=== PATIENT | male | born 1960 | race Caucasian/White ===

== ENCOUNTER 2020-01-07 06:05 | Emergency (ER) | payer OTHER, SELFPAY ==
[2020-01-07 06:07] VITALS: BP 151/76; PULSE 46; RESP 22; TEMP 37; O2SAT 100
--- NOTE | 2020-01-07 06:08 | DI.RAD.S_ITS ---
PROCEDURE: XR CHEST 1V INDICATIONS: SOB TECHNIQUE: One view of the chest was acquired. COMPARISON: None. FINDINGS: Surgical changes and devices: None. Lungs and pleura: Lungs are clear. No pleural effusions or pneumothorax. Mediastinum: Mediastinal contours appear normal. Heart size is normal. Bones and chest wall: No suspicious bony lesions. Overlying soft tissues appear unremarkable. IMPRESSION: No acute pulmonary process. Dictated by: Анна Cuello M.D. on 01/07/2020 at 10:17 Approved by: Анна Cuello M.D. on 01/07/2020 at 10:17
[2020-01-07 06:17] VITALS: PULSE 46; RESP 22; O2SAT 100
[2020-01-07 06:30] VITALS: BP 154/83; PULSE 47; RESP 41; O2SAT 99
[2020-01-07 06:35] LABS: Add Manual Diff / Slide Review NO; Basophils Absolute Auto 0 /uL (0-100); Basophils Percent Auto 0.5 % (0-2); Eosinophils Absolute Auto 200 /uL (0-450); Eosinophils Percent Auto 3.7 % (2-4); Hematocrit 43.5 % (41-53); Hemoglobin 14.5 g/dL (13.5-17.5); Lymphocytes Absolute Auto 2100 /uL (1100-4500); Lymphocytes Percent Auto 37.8 % (25-40); Mean Corpuscular HGB Conc 33.4 % (30-36); Mean Corpuscular Hemoglobin 28.9 PG (26-34); Mean Corpuscular Volume 86.5 fL (80-100); Monocytes Absolute Auto 300 /uL (0-900); Monocytes Percent Auto 6.1 % (3-14); Neutrophils Absolute Auto 2900 /uL (1500-7000); Neutrophils Percent Auto 51.9 % (50-75); Platelet Count 192 X10^3/uL (150-400); Red Blood Cell Count 5.03 X10^6/uL (4.5-5.9); Red Cell Distribution Width 14.8 % (11.6-14.8); White Blood Cell Count 5.6 X10^3/uL (4.5-11.0)
--- NOTE | 2020-01-07 06:36 | ED.GENADULT ---
HPI - General Adult General Chief complaint: Dizziness Stated complaint: DIZZINESS/ BP HIGH, HARD TO BREATH Time Seen by Provider: 01/07/20 06:07 Source: patient and family Mode of arrival: Wheelchair Limitations: no limitations History of Present Illness HPI narrative: 51-year-old male here for evaluation of dizziness, diaphoresis, high blood pressure, nausea, shortness of breath. Patient states that all of his symptoms started this morning with the dizziness. He states that he woke up and when he turned to his right side the symptoms started abruptly. He states that all of his other presenting symptoms occurred after this. At the time my evaluation he does think that his vertigo seem to have improved however he states that if he turns his head to the left or right he would bring the symptoms on. No fevers. Does have a history of high blood pressure. Related Data Previous Rx's Medication Instructions Recorded meclizine 25 mg PO TID PRN #14 tab 01/07/20 Allergies Allergy/AdvReac Type Severity Reaction Status Date / Time No Known Drug Allergies Allergy Verified 01/07/20 06:44 Review of Systems Constitutional Constitutional: Denies fever(s), Denies headache(s) and Denies weakness ENT Ears, Nose, Mouth, and Throat: Reports vertigo, Reports dizziness and Denies headache(s) Cardiovascular Cardiovascular: Denies chest pain and Reports dyspnea Respiratory Respiratory: Reports dyspnea Gastrointestinal Gastrointestinal: Denies abdominal pain, Reports nausea and Denies vomiting Genitourinary Genitourinary: Denies dysuria Genitourinary: Denies dysuria Musculoskeletal Musculoskeletal: Denies arthralgias, Denies myalgias and Denies tingling Integumentary/Breasts Skin/Breast: Denies lesions and Denies rash Neurologic Neurologic: Denies abnormal speech, Denies behavioral changes, Reports vertigo, Reports dizziness, Denies headache(s), Denies tingling and Denies weakness Psychiatric Psychiatric: Denies behavioral changes Hematologic/Lymphatic Hematologic/Lymphatic: Denies easy bleeding and Denies easy bruising Allergic/Immunologic Allergic/Immunologic: Denies urticaria Patient History Medical History Hypertension (Acute) Social History Smoking Status: Never smoker Smoking Status: Never smoker Substance Use Type: does not use Exam Initial Vital Signs Initial Vital Signs: Vital Signs Temperature 98.6 F 01/07/20 06:07 Pulse Rate 46 L 01/07/20 06:07 Respiratory Rate 22 01/07/20 06:07 Blood Pressure 151/76 H 01/07/20 06:07 Pulse Oximetry 100 01/07/20 06:07 Const General: cooperative and comfortable Limitations: mental status not altered HENMT Head: normal to inspection and normocephalic Nose: external nose normal Eyes General: appearance normal, both eyes and all related structures Pupils: PERRL Resp Effort & Inspection: normal respiratory effort Auscultation: clear to auscultation bilaterally Cardio Rate: bradycardic Rhythm: regular rhythm Pulses: radial pulses present GI Inspection: non-distended Palpation: soft Skin Lesions: no lesions Rashes: no rashes Neuro General: patient alert, patient awake, patient oriented x3, moves all extremities and no focal motor deficits Cranial Nerves: CN's II-XI intact bilaterally Cognition: normal cognition Speech: speech normal Motor: muscle tone normal throughout Sensory Exam: no sensory deficits noted Extrem General: normal to inspection and capillary refill normal Psych Appearance: grossly normal and well kempt Scores GCS Mihir coma scale eye opening: Spontaneous Mihir coma scale verbal response: Orientated Mihir coma scale motor response: Obey commands Mihir coma scale total score: 15 Course Orders Ordered: ED Orders 01/07/20 06:08 XR chest 1V Stat 01/07/20 06:09 EKG-12 Lead Stat 01/07/20 06:23 Complete Blood Count AUTO DIFF Stat Partial Thromboplastin Time Stat Prothrombin Time INR Stat 01/07/20 06:45 Comprehensive Metabolic Panel Stat Lipase Stat NT-proBNP (BNP-Adult 18+) Stat Troponin & CK Cardiac Panel Stat Discontinued Medications Meclizine HCl (Antivert) 25 mg PO NOW ONE Stop: 01/07/20 06:38 Last Admin: 01/07/20 06:40 Dose: 25 mg Documented by: NEENA Vital Signs Vital signs: Vital Signs - 8 hr 01/07/20 06:07 01/07/20 06:17 01/07/20 06:30 Temperature 98.6 F Pulse Rate 46 L 46 L 47 L Respiratory Rate 22 22 41 H Blood Pressure 151/76 H 154/83 H Pulse Oximetry 100 100 99 Medical Decision Making Lab Data Lab results reviewed: Yes I reviewed the patient's lab results. Result diagrams: 01/07/20 06:23 01/07/20 06:45 Labs: Lab Results 01/07/20 01/07/20 01/07/20 Range/Units 06:23 06:23 06:45 WBC 5.6 (4.5-11.0) X10^3/uL RBC 5.03 (4.5-5.9) X10^6/uL Hgb 14.5 (13.5-17.5) g/dL Hct 43.5 (41-53) % MCV 86.5 (80-100) fL MCH 28.9 (26-34) PG MCHC 33.4 (30-36) % RDW 14.8 (11.6-14.8) % Plt Count 192 (150-400) X10^3/uL Neut % (Auto) 51.9 (50-75) % Lymph % (Auto) 37.8 (25-40) % [place] % (Auto) 6.1 (3-14) % Eos % (Auto) 3.7 (2-4) % Baso % (Auto) 0.5 (0-2) % Neut # (Auto) 2900 (1595-6026) /uL Lymph # (Auto) 2100 (3849-2530) /uL [place] # (Auto) 300 (0-900) /uL Eos # (Auto) 200 (0-450) /uL Baso # (Auto) 0 (0-100) /uL PT 11.4 (10.1-12.7) SECONDS INR 1.0 (0.9-1.3) APTT 32 (26.4-36.2) SECONDS Sodium 138 (137-145) mmol/L Potassium 3.9 (3.4-5.1) mmol/L Chloride 104 (98-107) mmol/L Carbon Dioxide 29 (22-32) mmol/L BUN 17 (9-20) mg/dL Creatinine 0.80 (0.66-1.25) mg/dL Estimated GFR > 60.0 (>60) mL/min BUN/Creatinine Ratio 21.3 (6-22) Glucose 109 H (70-100) mg/dL Calcium 8.9 (8.4-10.2) mg/dL Total Bilirubin 0.9 (0.2-1.3) mg/dL AST 23 (17-59) IU/L ALT 18 (<50) IU/L Alkaline Phosphatase 50 (38-126) U/L Total Creatine Kinase 83 (55-170) U/L CK-MB (CK-2) TNP CK-MB (CK-2) Rel Index TNP Troponin I < 0.012 (0.01-0.034) ng/mL NT-Pro-B Natriuret Pep 54 (<125) pg/mL Total Protein 7.0 (6.3-8.2) g/dL Albumin 4.1 (3.5-5.0) g/dL Globulin 2.9 (1.7-4.1) g/dL Albumin/Globulin Ratio 1.4 (1.0-2.8) Lipase 79 (23-300) U/L Imaging Data Chest x-ray: Attestation: I personally reviewed and interpreted this imaging study as follows: My Impression: No pneumonia, no pneumothorax ECG Data Attestation: I personally reviewed and interpreted this ECG as follows: Prior ECG tracings: not available for review Interpretation: Sinus bradycardia Ventricular rate of 45 Normal axis Normal QRS Normal QTC No ST T wave changes MDM Narrative Medical decision making narrative: Patient did have a positive [place]-Hallpike maneuver. Action reports improvement of symptoms at the time my evaluation compared with the onset this morning. The fact that it occurred when he woke up. Fact that it is positional. The fact that he has a nonfocal neurologic exam I feel that this is most likely a peripheral vertigo. I feel we can hold on any radiologic studies. He was given meclizine and reports continued improvement. Unsure this is the meclizine or the passage of time that has improved symptoms. Will send home with a prescription for meclizine. Having contact his primary provider for follow-up. He was given return precautions. He expressed understanding and agreement. Discharge Plan Departure Patient Disposition: Home Clinical Impression: Vertigo Instructions: DI for Vertigo Activity Restrictions/Additional Instructions: There is a maneuver called the Eply maneuver that could potentially improve/resolve your symptoms. There are multiple videos on [employer] that describe this maneuver. Recommend that you observe 1 of these videos and follow the directions. A prescription for the meclizine was electronically transmitted to [facility] in [place]. Contact your primary provider for follow-up. Return to the emergency department for any new or worsening symptoms Prescriptions: New meclizine 25 mg tablet 25 mg PO TID PRN (Reason: dizziness) Qty: 14 RF: 0
[2020-01-07 06:37] LABS: Prothrombin Time 11.4 SECONDS (10.1-12.7)
[2020-01-07 06:40] LABS: PTT Partial Thromboplastin Tim 32 SECONDS (26.4-36.2)
[2020-01-07] MEDS: MECLIZINE HCL 12.5 MG TABLET 25 MG PO (06:40)
[2020-01-07 07:00] VITALS: BP 146/82; PULSE 43; RESP 17; O2SAT 94
[2020-01-07 07:06] LABS: Alanine Aminotransferase 18 IU/L (<50); Albumin 4.1 g/dL (3.5-5.0); Albumin Globulin Ratio 1.4 (1.0-2.8); Alkaline Phosphatase 50 U/L (38-126); Aspartate Aminotransferase 23 IU/L (17-59); BUN Creatinine Ratio 21.3 (6-22); Bilirubin Total 0.9 mg/dL (0.2-1.3); Blood Urea Nitrogen 17 mg/dL (9-20); Calcium 8.9 mg/dL (8.4-10.2); Carbon Dioxide 29 mmol/L (22-32); Chloride 104 mmol/L (98-107); Creatine Kinase 83 U/L (55-170); Estimated Glomerular Filt Rate > 60.0 mL/min (>60); Globulin 2.9 g/dL (1.7-4.1); Glucose 109 mg/dL (70-100); HEMOLYSIS < 15 (0-50); Lipase 79 U/L (23-300); Potassium 3.9 mmol/L (3.4-5.1); Sodium 138 mmol/L (137-145)
[2020-01-07 07:18] LABS: NT-proBNP (BNP-Adult 18+) 54 pg/mL (<125); Troponin I < 0.012 ng/mL (0.01-0.034)
[2020-01-07 07:30] VITALS: PULSE 46; RESP 15; O2SAT 97
[2020-01-07 07:38] VITALS: BP 146/84; PULSE 46; RESP 17; O2SAT 96
== END 2020-01-07 07:58 | disposition home or self-care (01) ==
PROVIDERS: Emergency Provider Emergency Medicine
DX: R42 Dizziness and giddiness (principal)
CPT/HCPCS: 36415; 71045; 80053; 82550; 83690; 83880; 84484; 85025; 85610; 85730; 93005; 99284

== ENCOUNTER 2020-11-26 12:00 | Emergency (ER) | payer OTHER, SELFPAY ==
[2020-11-26] VITALS (8 sets, daily range): BP systolic 144–181; BP diastolic 76–86; PULSE 48–57; RESP 16; TEMP 36.6; O2SAT 94–99; BMI 31.5
[2020-11-26 12:29] LABS: Add Manual Diff / Slide Review NO; Basophils Absolute Auto 100 /uL (0-100); Eosinophils Absolute Auto 200 /uL (0-450); Eosinophils Percent Auto 2.8 % (2-4); Hematocrit 41.8 % (41-53); Hemoglobin 13.5 g/dL (13.5-17.5); Lymphocytes Absolute Auto 2100 /uL (1100-4500); Lymphocytes Percent Auto 34.3 % (25-40); Mean Corpuscular HGB Conc 32.4 % (30-36); Mean Corpuscular Volume 86.7 fL (80-100); Monocytes Absolute Auto 500 /uL (0-900); Monocytes Percent Auto 8.8 % (3-14); Neutrophils Absolute Auto 3300 /uL (1500-7000); Neutrophils Percent Auto 53.1 % (50-75); Platelet Count 195 X10^3/uL (150-400); Red Blood Cell Count 4.82 X10^6/uL (4.5-5.9); Red Cell Distribution Width 14.5 % (11.6-14.8); White Blood Cell Count 6.2 X10^3/uL (4.5-11.0)
--- NOTE | 2020-11-26 12:30 | DI.US.S_ITS ---
PROCEDURE: US AORTA LIMITED INDICATIONS: ABDOMINAL PAIN AND HYPERTENSION TECHNIQUE: Real time scanning was performed of the aorta and iliac arteries, with image documentation. COMPARISON: None. FINDINGS: Aorta: Proximal aortic diameter measures 2.6 x 2.3 cm. Mid-aorta measures 2.1 x 1.6 cm. Distal aortic diameter is 2 x 1.7 cm. Iliac arteries: Right common iliac artery measures 1.2 cm. Left common iliac artery measures 1.2 cm. Additional scanning is performed area pain on the right, which corresponds to moderate right-sided hydronephrosis. IMPRESSION: Negative for aneurysm. Moderate right-sided hydronephrosis incidentally noted. Dictated by: Scot Aguila M.D. on 11/26/2020 at 12:18 Approved by: Scot Aguila M.D. on 11/26/2020 at 12:19
--- NOTE | 2020-11-26 12:34 | ED.ABDPAIN ---
HPI - Abdominal Pain <Elbert Pedro PA-C - Last Filed: 11/27/20 15:02> General Chief Complaint: Abdominal Pain Stated Complaint: severe constant right sided pain x20 min. Time Seen by Provider: 11/26/20 12:09 History of Present Illness HPI narrative: Alonso presents today with chief complaint of right lower quadrant abdominal pain that started suddenly and was severe about 20 minutes prior to arrival. He describes it as feeling like something ripped inside of his abdomen and then it felt like swelling. He looked down at his stomach to see if it was getting swollen but noticed that it was not. He reports a sensation like something is spreading inside of his abdomen radiating down into his groin. His pain was initially severe but now has improved. He reports significant past medical history of hypertension. He denies any smoking history. He denies any previous abdominal surgeries. He has no other acute concerns or complaints at this time. Related Data Previous Rx's Medication Instructions Recorded meclizine 25 mg tablet 25 mg PO TID PRN #14 tab 01/07/20 tamsulosin 0.4 mg capsule 0.4 mg PO DAILY PRN #10 cap 11/26/20 Allergies Allergy/AdvReac Type Severity Reaction Status Date / Time No Known Drug Allergies Allergy Verified 01/07/20 06:44 Review of Systems <Elbert Pedro PA-C - Last Filed: 11/27/20 15:02> Review of Systems Narrative: As per HPI Patient History <Elbert Pedro PA-C - Last Filed: 11/27/20 15:02> Medical History (Updated 11/26/20 @ 14:27 by Elbert Pedro PA-C) Hypertension Social History Smoking Status: Never smoker Smoking Status: Never smoker Substance Use Type: does not use Exam <Elbert Pedro PA-C - Last Filed: 11/27/20 15:02> Narrative Exam Narrative: Exam Narrative: Const General: cooperative, healthy appearing, comfortable, no acute distress, well developed and well groomed Nutritional Appearance: average body habitus Orientation: alert and oriented x3 HENMT Head: normal to inspection and atraumatic Ears: hearing grossly normal bilaterally Nose: external nose normal and nares normal Face and sinus: normal facial exam Neck Neck: normal visual inspection and supple Resp Effort & Inspection: normal respiratory effort, able to speak in complete sentences, no audible wheezes, not labored, no nasal flaring and no respiratory distress Cardiac Regular rate and rhythm, no discernible murmurs, rubs or gallops GI Nondistended, nontender to palpation, negative Garcia sign, no tenderness at McBurney's point, no pulsatile masses noted. No CVA tenderness, testicular and penile exam normal. No evidence of herniation. No epididymal tenderness. Cremasteric reflex intact bilaterally. Neuro General: alert, oriented x3, gait normal, tone normal and moves all extremities Cognition: normal cognition Speech: speech normal Gait: normal gait Psych Appearance: grossly normal and well kempt Mental Status: mental status grossly normal Speech and Movement: speech and movement normal Mood: congruent mood Affect: normal affect Initial Vital Signs Initial Vital Signs: Vital Signs Temperature 98 F 11/26/20 12:20 Pulse Rate 54 L 11/26/20 12:20 Respiratory Rate 16 11/26/20 12:20 Blood Pressure 181/86 H 11/26/20 12:20 Pulse Oximetry 97 11/26/20 12:20 <DO Reny Morris Last Filed: 11/27/20 15:27> Initial Vital Signs Initial Vital Signs: Vital Signs Temperature 98 F 11/26/20 12:20 Pulse Rate 54 L 11/26/20 12:20 Respiratory Rate 16 11/26/20 12:20 Blood Pressure 181/86 H 11/26/20 12:20 Pulse Oximetry 97 11/26/20 12:20 Course <Elbert Pedro PA-C - Last Filed: 11/27/20 15:02> Orders Ordered: Discontinued Medications Ketorolac Tromethamine (Ketorolac 30 Mg/Ml Vial) 15 mg IV NOW ONE Stop: 11/26/20 13:47 Last Admin: 11/26/20 14:09 Dose: Not Given Documented by: ALIA Vital Signs Vital signs: Vital Signs - 8 hr 11/26/20 12:20 Temperature 98 F Pulse Rate 54 L Respiratory Rate 16 Blood Pressure 181/86 H Pulse Oximetry 97 <DO Reny Morris Last Filed: 11/27/20 15:27> Orders Ordered: Discontinued Medications Ketorolac Tromethamine (Ketorolac 30 Mg/Ml Vial) 15 mg IV NOW ONE Stop: 11/26/20 13:47 Last Admin: 11/26/20 14:09 Dose: Not Given Documented by: ALIA Vital Signs Vital signs: Vital Signs - 8 hr 11/26/20 12:20 Temperature 98 F Pulse Rate 54 L Respiratory Rate 16 Blood Pressure 181/86 H Pulse Oximetry 97 MDM - Abdominal Pain <Elbert Pedro PA-C - Last Filed: 11/27/20 15:02> Lab Data Result diagrams: 11/26/20 12:15 11/26/20 12:15 Labs: Lab Results 11/26/20 11/26/20 Range/Units 12:15 12:15 WBC 6.2 (4.5-11.0) X10^3/uL RBC 4.82 (4.5-5.9) X10^6/uL Hgb 13.5 (13.5-17.5) g/dL Hct 41.8 (41-53) % MCV 86.7 (80-100) fL MCH 28.0 (26-34) PG MCHC 32.4 (30-36) % RDW 14.5 (11.6-14.8) % Plt Count 195 (150-400) X10^3/uL Neut % (Auto) 53.1 (50-75) % Lymph % (Auto) 34.3 (25-40) % [place] % (Auto) 8.8 (3-14) % Eos % (Auto) 2.8 (2-4) % Baso % (Auto) 1.0 (0-2) % Neut # (Auto) 3300 (0590-8452) /uL Lymph # (Auto) 2100 (8528-4333) /uL [place] # (Auto) 500 (0-900) /uL Eos # (Auto) 200 (0-450) /uL Baso # (Auto) 100 (0-100) /uL Sodium 140 (137-145) mmol/L Potassium 4.0 (3.4-5.1) mmol/L Chloride 108 H (98-107) mmol/L Carbon Dioxide 23 (22-32) mmol/L BUN 19 (9-20) mg/dL Creatinine 0.92 (0.66-1.25) mg/dL Estimated GFR > 60.0 (>60) mL/min BUN/Creatinine Ratio 20.7 (6-22) Glucose 145 H (70-100) mg/dL Calcium 9.6 (8.4-10.2) mg/dL Total Bilirubin 0.6 (0.2-1.3) mg/dL AST 34 (17-59) IU/L ALT 25 (<50) IU/L Alkaline Phosphatase 47 (38-126) U/L Total Protein 7.3 (6.3-8.2) g/dL Albumin 4.5 (3.5-5.0) g/dL Globulin 2.8 (1.7-4.1) g/dL Albumin/Globulin Ratio 1.6 (1.0-2.8) Lipase 87 (23-300) U/L Point of care testing: Urine Dip Bedside Urine Glucose Negative Bedside Urine Bilirubin - Negative Bedside Urine Ketone - Negative Urine Specific [place] 1.010 Bedside Urine Occult Blood +++ Bedside Urine pH 7.0 Bedside Urine Protein - Negative Bedside Urine Urobilinogen - Negative Bedside Urine Nitrite - Negative Bedside Urine Leukocytes - Negative Esterase MDM Narrative Medical decision making narrative: Evaluation today has been generally reassuring. Differential diagnosis considered includes appendicitis, AAA, testicular torsion, inguinal hernia, bowel obstruction. Patient has evidence of right nephrolithiasis he has without any significant signs of obstruction. He does not have any evidence of infection at this time. Aortic ultrasound is reassuring as is the CT scan. Recommend treatment for nephrolithiasis at this time with strict return precautions. These were discussed with the patient. Patient verbalizes understanding and agrees to plan and has no further concerns at this time. Thank you A [id number] system was used with the dictation of this note. Please disregard any spelling or grammatical errors. <Jh Cordova, DO - Last Filed: 11/27/20 15:27> Lab Data Labs: Lab Results 11/26/20 11/26/20 Range/Units 12:15 12:15 WBC 6.2 (4.5-11.0) X10^3/uL RBC 4.82 (4.5-5.9) X10^6/uL Hgb 13.5 (13.5-17.5) g/dL Hct 41.8 (41-53) % MCV 86.7 (80-100) fL MCH 28.0 (26-34) PG MCHC 32.4 (30-36) % RDW 14.5 (11.6-14.8) % Plt Count 195 (150-400) X10^3/uL Neut % (Auto) 53.1 (50-75) % Lymph % (Auto) 34.3 (25-40) % [place] % (Auto) 8.8 (3-14) % Eos % (Auto) 2.8 (2-4) % Baso % (Auto) 1.0 (0-2) % Neut # (Auto) 3300 (3376-2564) /uL Lymph # (Auto) 2100 (6267-0835) /uL [place] # (Auto) 500 (0-900) /uL Eos # (Auto) 200 (0-450) /uL Baso # (Auto) 100 (0-100) /uL Sodium 140 (137-145) mmol/L Potassium 4.0 (3.4-5.1) mmol/L Chloride 108 H (98-107) mmol/L Carbon Dioxide 23 (22-32) mmol/L BUN 19 (9-20) mg/dL Creatinine 0.92 (0.66-1.25) mg/dL Estimated GFR > 60.0 (>60) mL/min BUN/Creatinine Ratio 20.7 (6-22) Glucose 145 H (70-100) mg/dL Calcium 9.6 (8.4-10.2) mg/dL Total Bilirubin 0.6 (0.2-1.3) mg/dL AST 34 (17-59) IU/L ALT 25 (<50) IU/L Alkaline Phosphatase 47 (38-126) U/L Total Protein 7.3 (6.3-8.2) g/dL Albumin 4.5 (3.5-5.0) g/dL Globulin 2.8 (1.7-4.1) g/dL Albumin/Globulin Ratio 1.6 (1.0-2.8) Lipase 87 (23-300) U/L Point of care testing: Urine Dip Bedside Urine Glucose Negative Bedside Urine Bilirubin - Negative Bedside Urine Ketone - Negative Urine Specific [place] 1.010 Bedside Urine Occult Blood +++ Bedside Urine pH 7.0 Bedside Urine Protein - Negative Bedside Urine Urobilinogen - Negative Bedside Urine Nitrite - Negative Bedside Urine Leukocytes - Negative Esterase Discharge Plan Departure Patient Disposition: Home Clinical Impression: Kidney stone on right side Instructions: DI for Kidney Stones Activity Restrictions/Additional Instructions: It was very nice to meet you this afternoon. Please use the medication to help you pass the kidney stone. I expect your symptoms to improve in next 1-2 days. Please return if you experience is significant urine decrease, worsening pain, fever or have any additional concerns or complaints. Incidentally on the CT scan a small nodule was noted in your lung as well on as on the liver. The radiologist recommended a re-scan in 6-12 months. Please follow-up with your primary care provider for this. Thank you Elbert Pedro PAC Prescriptions: New tamsulosin 0.4 mg capsule 0.4 mg PO DAILY PRN (Reason: until stone passes) Qty: 10 RF: 0 No Action meclizine 25 mg tablet 25 mg PO TID PRN (Reason: dizziness) Qty: 14 RF: 0 <Jh Cordova, DO - Last Filed: 11/27/20 15:27> [facility] Dr Cordova Co-Sign Statement: I was available for consultation during this patient's emergency department visit. This chart is signed by myself for administrative purposes only. I did not have direct contact with this patient during this visit. They were seen independently by the APC.
[2020-11-26 12:43] LABS: Alanine Aminotransferase 25 IU/L (<50); Albumin 4.5 g/dL (3.5-5.0); Albumin Globulin Ratio 1.6 (1.0-2.8); Alkaline Phosphatase 47 U/L (38-126); Aspartate Aminotransferase 34 IU/L (17-59); BUN Creatinine Ratio 20.7 (6-22); Bilirubin Total 0.6 mg/dL (0.2-1.3); Blood Urea Nitrogen 19 mg/dL (9-20); Calcium 9.6 mg/dL (8.4-10.2); Carbon Dioxide 23 mmol/L (22-32); Chloride 108 mmol/L (98-107); Estimated Glomerular Filt Rate > 60.0 mL/min (>60); Globulin 2.8 g/dL (1.7-4.1); Glucose 145 mg/dL (70-100); HEMOLYSIS < 15 (0-50); Lipase 87 U/L (23-300); Sodium 140 mmol/L (137-145); Total Protein 7.3 g/dL (6.3-8.2)
--- NOTE | 2020-11-26 13:16 | DI.CT.S_ITS ---
PROCEDURE: CT ABDOMEN PELVIS W CON INDICATIONS: abd pain TECHNIQUE: After the administration of intravenous contrast, axial sections acquired from the lung bases to the pubic symphysis. Coronal and sagittal reformats were performed. For radiation dose reduction, the following was used: automated exposure control, adjustment of mA and/or kV according to patient size. COMPARISON: None. FINDINGS: Image quality: Excellent. Lung bases: 6-7 millimeter nodule noted in the right middle lobe (series 3, image 3). Heart: No significant findings. ABDOMEN: Liver: 1.5 centimeter hypoattenuating lesion with internal calcification noted in the left lobe of the liver which may represent hemangioma. Focal fatty infiltration noted in the liver adjacent to the falciform ligament. Gallbladder: Contracted, but within normal limits. Biliary ducts: Unremarkable. Pancreas: Unremarkable. Spleen: Unremarkable. Adrenal Glands: Unremarkable. Kidneys and Ureters: 6 millimeter stone noted in the proximal right ureter causing mild right-sided hydronephrosis. No left-sided renal stones or hydronephrosis. Stomach and Bowel: Stomach, small bowel loops, and colon are unremarkable. The appendix is not definitely visualized. No free fluid or inflammatory changes are noted adjacent to the cecum. Peritoneum: No abnormal intraperitoneal fluid. No free air. Ventral Wall: Small fat containing periumbilical hernia. Abdominal Nodes: No retroperitoneal or mesenteric adenopathy by size criteria. Vessels: Aorta and inferior vena cava are normal in size. PELVIS: Pelvic Organs: Unremarkable. Bladder: Unremarkable. Pelvic Nodes: No enlarged lymph nodes. Miscellaneous: Small fat containing left inguinal hernia. Intramuscular lipoma noted in the right gluteal musculature. Bones: Spine degenerative disc disease and facet arthropathy. IMPRESSION: 1. 6 millimeter stone in the proximal right ureter causing mild right-sided hydronephrosis. 2. Appendix not visualized. No secondary signs of appendicitis noted adjacent to the cecum. 3. 1.5 centimeter partially calcified and hypoattenuating lesion the left lobe of the liver which may represent hemangioma, however the lesion is not definitively characterized by the current study. Recommend MRI of the abdomen with and without contrast (hepatic protocol) for further characterization. 4. 6-7 millimeter nodule in the right middle lobe. Recommend CT scan of the chest in 6-12 months based on criteria outlined below. Fleischner Society criteria for SOLID lung nodule followup. Nodule size (mm)Low-risk patientHigh-risk patient<6 (single or multiple)No routine followup.Optional CT at 12 months. 6-8 (single or multiple)CT at 6-12 months, then optional CT at 18-24 mo.CT at 6-12 months, then CT at 18-24 months. >8 (single)CT at 3 months, PET-CT, or biopsy. Same as for low-risk pts. >8 (multiple)CT at 3-6 months, then optional CT at 18-24 mo.CT at 3-6 months, then CT at 18-24 months. Recommendations do not apply to lung cancer screening, patients with immunosuppression, or patients with known primary cancer. Dictated by: Mady Vinson MD, PhD on 11/26/2020 at 13:48 Approved by: Mady Vinson MD, PhD on 11/26/2020 at 13:58
--- NOTE | 2020-11-26 14:25 | PC.NURSE ---
Pt declined pain medication states he pain has resolved
== END 2020-11-26 14:49 | disposition home or self-care (01) ==
PROVIDERS: Emergency Provider Physician Assistant
DX: N20.0 Calculus of kidney (principal); R10.31 Right lower quadrant pain
CPT/HCPCS: 36415; 74177; 80053; 81003; 83690; 85025; 93005; 93010; 93979; 99284

== ENCOUNTER → 2020-12-20 10:06 | Outpatient (CLI) | payer OTHER, SELFPAY ==
--- NOTE | 2020-12-20 10:08 | DI.MRI.S_ITS ---
PROCEDURE: MR SHOULDER LT WO CON INDICATIONS: Strain of muscle(s) and tendon(s) of the rotator c TECHNIQUE: Noncontrast oblique coronal T2 fast spin echo with fat saturation, oblique sagittal T1 spin echo and T2 fast spin echo with fat saturation, axial T1 spin echo and T2 fast spin echo with fat saturation through the shoulder. COMPARISON: None. FINDINGS: Image quality: Excellent. Rotator cuff: There is partial-thickness tear of the supraspinatus and subscapularis tendons involving both articular and bursal surface with associated tendinitis. There is infraspinatus and subscapularis tendinitis. Sagittal images demonstrate no muscle atrophy. Bones and bursae: No bone marrow contusions or fractures. Moderate acromioclavicular joint degeneration. The acromion demonstrates conventional anatomy, without an os acromiale. No pathologic subacromial-subdeltoid or subcoracoid bursal fluid is present. Capsule and soft tissues: There is degenerative fraying of the anterior labrum. The long head of the biceps tendon demonstrates normal location and morphology. The rotator interval is irregular. The coracohumeral ligament is appears thickened. IMPRESSION: 1. Partial thickness tear of the distal supraspinatus and subscapularis tendons and associated tendinitis. 2. Infraspinatus tendinitis. 3. Degenerative anterior labral fraying. 4. Moderate acromioclavicular joint degeneration. 5. Irregular rotator interval with thickening of coracohumeral ligament. The findings are associated with adhesive capsulitis. Recommend clinical correlation. Dictated by: Sumi Jackman M.D. on 12/22/2020 at 11:11 Approved by: Sumi Jackman M.D. on 12/22/2020 at 18:24
== END ==
PROVIDERS: Referring Provider Family Medicine; Visit Provider Family Medicine
DX: S46.012A Strain of muscle(s) and tendon(s) of the rotator cuff of left shoulder, initial encounter (principal); M19.012 Primary osteoarthritis, left shoulder; M77.8 Other enthesopathies, not elsewhere classified; X58.XXXA Exposure to other specified factors, initial encounter
CPT/HCPCS: 73221

== ENCOUNTER → 2021-03-04 15:43 | Outpatient (CLI) | payer OTHER, SELFPAY ==
--- NOTE | 2021-03-04 | DI.MRI.S_ITS ---
PROCEDURE: MR ABDOMEN WO/W CON INDICATIONS: other specified diseases of the liver TECHNIQUE: Coronal HASTE, axial 2D FLASH in- and [id number]; axial breath-hold T2 FSE. Dynamic axial VIBE during the administration of contrast; post-contrast coronal VIBE or 2D FLASH with fat saturation from the hepatic dome to the iliac crests. Optional diffusion weighted imaging and ADC may be performed. COMPARISON: [facility], CT, CT ABDOMEN PELVIS W CON, 11/26/2020, 13:21. FINDINGS: Image quality: Excellent. Lung bases: No basal pleural effusions. Heart size is normal. Solid organs: Liver is normal in size and enhancement. 1.3 cm unilocular thin-walled T2 hyperintensities present in the anterior segment IV a. Demonstrates homogeneous T1 hypointensity and no significant internal enhancement. No enhancing liver abnormalities. The gallbladder is decompressed. The biliary system is nondilated. The pancreas enhances normally. No adrenal masses. Spleen is normal size. The kidneys enhance normally without hydronephrosis. Nodes and vessels: No retroperitoneal or mesenteric adenopathy by size criteria. Aorta and inferior vena cava are normal in size. Bowel and peritoneum: Unenhanced bowel loops are normal in caliber. No free fluid. Bones and soft tissues: No ventral hernias. Bone marrow is normal in overall signal. IMPRESSION: 1. 1.3 cm unilocular liver cyst. CT demonstrates layering calcium within the cyst, not apparent by MRI. This may be remote posttraumatic. 2. Otherwise normal MR of the abdomen. Dictated by: Renita Warner M.D. on 03/04/2021 at 23:41 Approved by: Renita Warner M.D. on 03/04/2021 at 23:49
== END ==
PROVIDERS: Referring Provider Family Medicine; Visit Provider Family Medicine
DX: K76.89 Other specified diseases of liver (principal)
CPT/HCPCS: 74183; A9579

== ENCOUNTER → 2021-09-16 11:29 | Outpatient (CLI) | payer OTHER, SELFPAY ==
--- NOTE | 2021-09-16 | DI.MRI.S_ITS ---
PROCEDURE: MR HAND RT WO CON INDICATIONS: Strain of unspecified muscle, fascia and tendon at TECHNIQUE: Noncontrast coronal T1 spin echo and T2 fast spin echo with fat saturation, axial proton density fast spin echo and T2 fast spin echo with fat saturation, sagittal T1 spin echo and STIR through the hand and fingers. COMPARISON: None. FINDINGS: Image quality: Excellent. Bones: The bones are normally aligned, without marrow contusions or fractures. Mild osteoarthritic changes are noted throughout right hand and wrist joints more prominent involving 1st CMC joint and triscaphe joint. Nonspecific subcortical cystic areas are noted involving distal portion of triquetrum, adjacent hamate, 1st proximal phalangeal base likely represent changes related to osteoarthritis. No intra-osseous lesions. Interphalangeal joint(s): The accessory and proper collateral ligaments appear intact. The volar plate demonstrates normal morphology. The extensor central slips appear intact on sagittal images. Metacarpophalangeal joint(s): The accessory and proper collateral ligaments appear intact, as well as the volar plate and adjacent deep transverse metacarpal ligaments. The sagittal bands of the extensor herrera appear normal. Extensor apparatus: The central slips insert normally on the middle phalangeal base. The conjoint and terminal tendons insert normally on the distal phalangeal bases. More proximal portions of the extensor tendons also appear normal. Flexor apparatus: The flexor digitorum superficialis and profundus tendons both appear intact. All annular and cruciform pulleys appear intact, without adjacent soft tissue edema. Soft tissues: Visualized muscles demonstrate normal bulk and internal signal. No intramuscular masses identified. No ganglion cysts. IMPRESSION: 1. Osteoarthritic changes throughout right hand and wrist. No marrow edema. No fracture or dislocation. No suspicious intraosseous lesion. No gross bony erosive changes. 2. Extensor and flexor tendons of right hand are grossly intact. No muscle or soft tissue signal abnormality. Medial and lateral collateral ligaments are intact. Dictated by: Taras Rubin M.D. on 09/16/2021 at 13:57 Approved by: Taras Rubin M.D. on 09/16/2021 at 14:01
== END ==
PROVIDERS: Referring Provider Family Medicine; Visit Provider Family Medicine
DX: S66.911A Strain of unspecified muscle, fascia and tendon at wrist and hand level, right hand, initial encounter (principal)
CPT/HCPCS: 73218

== ENCOUNTER 2023-11-16 11:17 | Day surgery (SDC) | payer OTHER, SELFPAY ==
[2023-11-09 15:18] VITALS: BMI 33.7
--- NOTE | 2023-11-15 08:42 | PM.HP.1 ---
History of Present Illness History of Present Illness Date Patient Seen: 11/16/23 Time Patient Seen: 12:05 Chief complaint: Open umbilical hernia Narrative: 62-year-old man here for elective open umbilical hernia repair. No interval change in health. [facility] Medical History DDD (degenerative disc disease) Cervical strain Eczema Anxiety Depression Lipoma GERD (gastroesophageal reflux disease) Hypertension Surgical History History of surgery History of carpal tunnel surgery of right wrist History of tonsillectomy Social History details: Pt. lives with his mom and brother household members: family lives independently: Yes occupational status: previously employed Smoking Status: Never smoker alcohol intake: current substance use type: marijuana Meds Home Medications and Allergies Home Medications Medication Instructions Recorded Confirmed Type losartan 100 mg tablet 100 mg PO DAILY 01/21/22 11/16/23 History omeprazole magnesium 20 mg 20 mg PO DAILY 01/21/22 09/16/23 History tablet,delayed release (Prilosec OTC) amlodipine 10 mg tablet 10 mg PO DAILY 09/16/23 11/16/23 History losartan 100 1 tab PO DAILY 11/16/23 11/16/23 History mg-hydrochlorothiazide 12.5 mg tablet Allergies Allergy/AdvReac Type Severity Reaction Status Date / Time No Known Drug Allergies Allergy Verified 09/16/23 10:14 Exam Narrative Exam Narrative: General adult man alert oriented no acute distress Chest nonlabored respiration Abdomen soft nontender nondistended with a umbilical hernia Assessment & Plan Assessment & Plan narrative: 62-year-old man here for elective umbilical hernia repair. Overview of the operation was again discussed at the bedside including the risks benefits and alternatives. Following discussion he elects to proceed and provides his written and verbal consent. Time-Based Coding :: [TOTAL MINUTES] spent with patient and on the chart (including review of chart, obtaining history, exam, reviewing outside data, placing orders, documenting exam and treatment plan, and counseling patient) on [DATE].
[2023-11-16 11:34] VITALS: BP 158/86; PULSE 50; RESP 16; TEMP 36.7; O2SAT 97; BMI 33.7
[2023-11-16] MEDS: LACTATED RINGERS 1,000 ML 42 ML IV (11:51)
[2023-11-16] MEDS: CEFAZOLIN 2 GM/100 ML PREMIX 100 ML IV (12:10)
--- NOTE | 2023-11-16 12:19 | SUR.OPER ---
Supine on padded OR bed, head on pillow, arms secured on padded arm boards at <90 degrees abduction, legs uncrossed, safety belt at thigh, tape over blanket over lower legs.
[2023-11-16] MEDS: BUPIVACAINE 0.25% (PF) VIAL 30 ML INJ (12:25)
[2023-11-16 13:18] VITALS: BP 141/95; PULSE 52; RESP 14; TEMP 36.4; O2SAT 95
[2023-11-16 13:23] VITALS: BP 146/90; PULSE 54; RESP 19; TEMP 36.6; O2SAT 94
[2023-11-16] MEDS: OXYCODONE IR 5 MG TABLET PO (13:27)
[2023-11-16] MEDS: ONDANSETRON 4 MG/2 ML INJ IV (13:27)
[2023-11-16] MEDS: hydrOXYzine 50 MG/ML INJ 25 MG IM (13:27)
[2023-11-16 13:29] VITALS: BP 138/86; PULSE 51; RESP 12; TEMP 36.6; O2SAT 94
[2023-11-16 13:33] VITALS: BP 153/85; PULSE 59; RESP 16; TEMP 36.5; O2SAT 94
--- NOTE | 2023-11-16 13:34 | P.OP_ITS ---
Operative Date/Time/Diagnoses Date of procedure: 11/16/23 Time of procedure: 13:34 Pre-op diagnosis: Umbilical hernia Post-op diagnosis: same Procedure & Clinicians Procedure: open umbilical hernia repair Same procedure as scheduled: Yes Indications: symptomatic reducible umbilical Surgeon: Antonio Bedoya Rehabilitation Manager: Alex Perez Anesthesia Type: General Operative Notes Findings: containing umbilical hernia 3 cm defect Estimated Blood Loss (mL): 20 Procedure in detail: Patient was brought to the operating room placed supine on the table. Bilateral lower extremity compression devices were applied. General anesthesia was induced and they were intubated with an endotracheal tube. They received 2 g of Ancef prior to skin incision. They were prepped and draped in sterile fashion. A time-out was performed. A curvilinear incision was made inferior to the umbilicus. The subcutaneous tissues were divided. The umbilical hernia was identified and the hernia sac was dissected off the umbilical skin and circumferentially off of the fascia defect. The hernia sac was sharply opened and contained viable omentum. The omentum was reduced back into the abdomen. Using blunt dissection I carefully carefully freed the hernia sac from beneath the fascia defect in order to accomodate the mesh. The fascia defect was 4cm in maximal diameter. A Bard Ventralex ST hernia patch 8 cm was inserted beneath the fascia defect and above the peritoneum in a sublay position. The mesh was anchored in multiple locations using Ethibond suture to the fascia and the fascial defect was closed over the mesh. The umbilical skin was tacked to the subcutaneous tissues and then the remainder of the subcutaneous tissues were reapproximated using 3 0 Vicry,l skin closed with 4 0 Monocryl followed by the application of Dermabond and Steri-Strips. Sponge instrument count at the end of the operation was correct. Patient tolerated procedure well was extubated and transferred to postoperative care unit in stable condition. Complications: none Post-operative Condition: stable Disposition: same day surgery
== END 2023-11-16 14:10 | disposition home or self-care (01) ==
PROVIDERS: PCP Internal Medicine; Referring Provider Surgery; Visit Provider Surgery
PROC: (CPT 49593; principal; 2023-11-16 12:45)
DX: K42.9 Umbilical hernia without obstruction or gangrene (principal)
CPT/HCPCS: 49593; J0330; J0690; J1100; J1170; J2405; J2704; J3410